=== PATIENT | male | born 1965 | race Caucasian/White ===

== ENCOUNTER 2017-08-08 09:33 | Day surgery (SDC) | payer MEDICARE, MEDICAID ==
[2017-08-08 10:24] VITALS: BP 153/92
[2017-08-08] MEDS ORDERED: MIDAZOLAM 1 MG/ML, 5ML ONE ×2 (10:46)
[2017-08-08] MEDS ORDERED: FENTANYL PF 100 MCG/2ML ONE (10:46)
[2017-08-08] MEDS ORDERED: FLUMAZENIL 0.1 MG/1 ML, 5ML ONE (10:46)
[2017-08-08] MEDS ORDERED: NALOXONE 1 MG/ML, 2ML ONE (10:46)
[2017-08-08] MEDS ORDERED: LIDOCAINE-MPF 1%, 5ML ONE ×2 (10:49)
== END 2017-08-08 12:00 | disposition home or self-care (01) ==
LOC: OUT 09:33
PROVIDERS: ATTEND Family Medicine
DX: L98.8 Other specified disorders of the skin and subcutaneous tissue (principal); Z53.9 Procedure and treatment not carried out, unspecified reason; Z88.0 Allergy status to penicillin; F31.9 Bipolar disorder, unspecified; J45.40 Moderate persistent asthma, uncomplicated
CPT/HCPCS: 20220; 77012; J2250; J3010; J2310